=== PATIENT | female | born 1975 | race Two or more races ===

== ENCOUNTER 2021-02-04 13:30 | Inpatient (IN) | payer OTHER ==
[~2021-02-04] VITALS: Ht 157.5 cm; Wt 59.4 kg
[2021-02-06] MEDS ORDERED: PREVIDENT56 GM (08:40)
[2021-02-06] MEDS ORDERED: PROPRANOLOL HCL10 MG (08:40)
== END 2021-02-06 18:45 | disposition home or self-care (01) | DRG 743 ==
LOC: O/R 02-05 06:17 → OB/GYN 02-05 06:17
PROVIDERS: ADMIT Specialist; ATTEND Specialist
PROC: 0UDB7ZZ Extraction of Endometrium, Via Natural or Artificial Opening (ICD-10-PCS; 2021-02-05)
PROC: 0DNW4ZZ Release Peritoneum, Percutaneous Endoscopic Approach (ICD-10-PCS; 2021-02-05)
PROC: 0UNF4ZZ Release Cul-de-sac, Percutaneous Endoscopic Approach (ICD-10-PCS; 2021-02-05)
PROC: 0UB04ZZ Excision of Right Ovary, Percutaneous Endoscopic Approach (ICD-10-PCS; principal; 2021-02-05 09:15)
DX: N80.1 Endometriosis of ovary (principal); N72 Inflammatory disease of cervix uteri; N80.3 Endometriosis of pelvic peritoneum; N80.5 Endometriosis of intestine

== ENCOUNTER 2024-01-05 08:50 | Outpatient (CLI) | payer OTHER ==
[~2024-01-05 08:50] MED LIST: PREVIDENT56 GM; PROPRANOLOL HCL10 MG
== END 2024-01-05 08:55 | disposition home or self-care (01) ==
LOC: SONOGRAMA 08:50
PROVIDERS: ATTEND Pathology Anatomic Pathology & Clinical Pathology
DX: D34 Benign neoplasm of thyroid gland (principal); E07.89 Other specified disorders of thyroid; E03.9 Hypothyroidism, unspecified